=== PATIENT | male | born 1955 | race Caucasian/White ===

== ENCOUNTER 2022-06-23 07:32 | Day surgery (SDC) | payer BC ==
[~2022-06-23 07:32] MED LIST: Lactated Ringers 1,000 ML IV SCH
[2022-06-23] MEDS ORDERED: Propofol 200 MG/20 ML SDV ONE ×2 (08:28→10:02)
[2022-06-23] MEDS ORDERED: fentaNYL 100 MCG/2 ML SDV ONE (08:28)
== END 2022-06-23 14:48 | disposition home or self-care (01) ==
LOC: VM.SDS 07:32
PROVIDERS: ATTEND Family Medicine
DX: Z12.11 Encounter for screening for malignant neoplasm of colon (principal); D12.6 Benign neoplasm of colon, unspecified; I10 Essential (primary) hypertension; E11.9 Type 2 diabetes mellitus without complications; G47.33 Obstructive sleep apnea (adult) (pediatric); M17.11 Unilateral primary osteoarthritis, right knee; Z80.0 Family history of malignant neoplasm of digestive organs; Z88.0 Allergy status to penicillin; Z88.8 Allergy status to other drugs, medicaments and biological substances; Z98.890 Other specified postprocedural states; Z79.899 Other long term (current) drug therapy; Z79.82 Long term (current) use of aspirin; Z90.49 Acquired absence of other specified parts of digestive tract; Z79.84 Long term (current) use of oral hypoglycemic drugs
CPT/HCPCS: 00812; 82947; J2704; J3010; J7120